=== PATIENT | female | born 1945 | race Caucasian/White ===

== ENCOUNTER 2017-09-07 15:04 | Observation (INO) | payer BC, OTHER ==
[2017-09-07] MEDS ORDERED: SODIUM CHLORIDE 1,000 ML IV SCH (15:45)
--- NOTE | 2017-09-07 15:48 | PDOC ---
History of Present Illness - General Chief Complaint: Headache Stated Complaint: HEADACHE, CONFUSED Time Seen by Provider: 09/07/17 15:12 - History of Present Illness Initial Comments: 09/07/17 15:44 71 F with no PMH presents to ED with 1 day of confusion and headache. Per , pt was in [facility] last night. This morning when she awoke, she began to complain that she did not feel well, stating that she had a headache and at times complained of chest pain. The states that he didn't notice anything was off at first, but as the day progressed, the pt began to grow more confused. He states that she was repeating the same questions over and over and had no recollection of events that had transpired just hours earlier. Pt is unable to contribute much history due to poor memory. She states that she does not know why she is here today. Pt is able to recall her name and knows that she is at [place] but cannot recall the date, month, or year. Pt currently complains of headache with some nausea. Denies chest pain/SOB. Denies weakness/numbness in any extremity. denies ever seeing any facial droop or slurred speech. Past History - Past Medical History Allergies/Adverse Reactions: Allergies Allergy/AdvReac Type Severity Reaction Status Date / Time azithromycin [From Zithromax] Allergy Unverified 09/07/17 15:37 Home Medications: Ambulatory Orders NK [No Known Home Medication] 09/07/17 Review of Systems - Review of Systems Comments:: 09/07/17 15:48 "GENERAL/CONSTITUTIONAL: No fever or chills. No weakness. HEAD, EYES, EARS, NOSE AND THROAT: No change in vision. No ear pain or discharge. No sore throat. CARDIOVASCULAR: No chest pain or shortness of breath. RESPIRATORY: No cough, wheezing, or hemoptysis. GASTROINTESTINAL: No nausea, vomiting, diarrhea or constipation. GENITOURINARY: No dysuria, frequency, or change in urination. MUSCULOSKELETAL: No joint or muscle swelling or pain. No neck or back pain. SKIN: No rash NEUROLOGIC: + headache, +confusion, no vertigo, loss of consciousness, or change in strength/sensation. ENDOCRINE: No increased thirst. No abnormal weight change. HEMATOLOGIC/LYMPHATIC: No anemia, easy bleeding, or history of blood clots. ALLERGIC/IMMUNOLOGIC: No hives or skin allergy. " *Physical Exam - Physical Exam Comments: 09/07/17 15:48 "GENERAL: Awake, alert, in no acute distress HEAD: No signs of trauma EYES: PERRLA, EOMI, sclera anicteric, conjunctiva clear ENT: Auricles normal inspection, hearing grossly normal, nares patent, oropharynx clear without exudates. Moist mucosa NECK: Nontender, no stepoffs, Normal ROM, supple, no lymphadenopathy, JVD, or masses LUNGS: Breath sounds equal, clear to auscultation bilaterally. No wheezes, and no crackles HEART: Regular rate and rhythm, normal S1 and S2, no murmurs, rubs or gallops ABDOMEN: Soft, nontender, normoactive bowel sounds. No guarding, no rebound. No masses EXTREMITIES: Normal range of motion, no edema. No clubbing or cyanosis. No cords, erythema, or tenderness NEUROLOGICAL: Alert and oriented to person and place only, Cranial nerves II through XII intact. 5/5 strength and sensation in all extremities, Normal speech , normal gait, normal cerebellar function SKIN: Warm, Dry, normal turgor, no rashes or lesions noted. " ED Treatment Course - LABORATORY CBC & Chemistry Diagram: 09/07/17 15:48 09/07/17 15:48 - RADIOLOGY Radiology Studies Ordered: Category Date Time Status HEAD CT (STROKE) [CT] Stat CT Scan 09/07/17 15:34 Ordered Medical Decision Making - Medical Decision Making 09/07/17 15:49 71 F with 1 day of headache and confusion. Pt alert and oriented to person and place only. Neuro exam otherwise normal. Possible CVA/ICH, but symptoms also seem consistent with TGA. Pt outside window for tPA. - CT head - Labs - Neuro consult 09/07/17 17:23 CTH negative Labs wnl. Spoke with Dr. Perez, neuro chief radiation therapist, who recommends MRI at this time to r/o ischemia. Aspirin and statin given. Hospitalist microblogged for admission. 09/07/17 17:35 Pt admitted to hospitalist *DC/Admit/Observation/Transfer Diagnosis at time of Disposition: TGA (transient global amnesia) - Discharge Dispostion Admit: Yes - Referrals - Patient Instructions - Post Discharge Activity - Attestations Physician Attestion: 09/07/17 17:35 I, Dr. Manuel Jack MD, attest that this document has been prepared under my direction and personally reviewed by me in its entirety. I further attest, that it accurately reflects all work, treatment, procedures and medical decision -making performed by me. NIH Stroke Scale - Last Known Well Date/Time & Onset Date Last Known Well: 09/06/17 Time Last Known Well: 20:00 - Initial Evaluation Level of consciousness: Alert Ask patient the month and their age: Both incorrect Ask patient to open & close eyes; make fist and let go: Obeys both correctly Best gaze (horizontal eye movement): Normal Visual field testing: No visual field loss Facial paresis (Show teeth/raise eyebrows/close eyes tight): Normal symmetrical movement Motor Function: Left Arm: Normal Motor Function: Right Arm: Normal (extends arm 90 (or 45) degrees for 10 seconds without drift Motor Function: Left Leg: Normal (extends leg 30 degrees for 5 seconds without drift) Motor Function: Right Leg: Normal (extends leg 30 degrees for 5 seconds without drift) Limb Ataxia: No ataxia Sensory(Use pinprick test arms,legs,trunk,face/side to side): Normal Best language (Describe picture, name items, read sentences): No Aphasia Dysarthria (read several words): Normal articulation Extinction and Inattention: No abnormality - Total Score NIH Stroke Scale Score: 2
[2017-09-07 16:02] LABS: BASO % 0.9 % (0-2.0); EOS % 0.5 % (0-4.5); HEMATOCRIT 41.8 % (32.4-45.2); HEMOGLOBIN 14.2 GM/dl (10.7-15.3); LYMPH % 11.5 % (8-40); MCH 28.9 pg (25.7-33.7); MCHC 33.9 g/dl (32.0-36.0); MEAN CELL VOLUME 85.2 fl (80-96); MEAN PLT VOLUME 8.3 fl (7.5-11.1); MONO % 4.5 % (3.8-10.2); NEUT % 82.6 % (42.8-82.8); PLATELET COUNT 192 K/MM3 (134-434); RDW 12.8 % (11.6-15.6); WHITE BLOOD COUNT 6.9 K/mm3 (4.0-10.8)
[2017-09-07 16:10] VITALS: BMI 19.0
[2017-09-07 16:25] LABS: INR 1.02 (0.82-1.09); PROTHROMBIN TIME (PATIENT) 11.4 SEC (10.2-13.0)
[2017-09-07 16:47] LABS: ALBUMIN 4.3 g/dl (3.5-5.0); ALK PHOS 66 U/L (32-92); ANION GAP 6 (8-16); BILIRUBIN,TOTAL 1.1 mg/dl (0.2-1.0); BLOOD UREA NITROGEN 10 mg/dl (7-18); CALCIUM 9.1 mg/dl (8.4-10.2); CHLORIDE 99 mmol/L (98-107); CHOLESTEROL 232 mg/dl; CO2 28 mmol/L (22-28); CREATININE 0.8 mg/dl (0.6-1.3); GLUCOSE,RANDOM 108 mg/dl (74-106); HDL CHOLESTEROL 82 mg/dl (29-89); POTASSIUM 3.8 mmol/L (3.5-5.1); SGOT/AST 28 U/L (10-42); SGPT/ALT 31 U/L (10-40); SODIUM 133 mmol/L (136-145); TOT PROT 6.8 g/dl (6.4-8.3); TRIGLYCERIDES 75 mg/dl (35-160)
[2017-09-07] MEDS ORDERED: ASPIRIN 325 MG TABLET PO ONE (17:14)
[2017-09-07] MEDS ORDERED: ATORVASTATIN CA 80 MG TABLET (FP) PO ONE (17:16)
[2017-09-07] MEDS ORDERED: ASPIRIN 325 MG TABLET ONE (17:33)
[2017-09-07] MEDS ORDERED: ATORVASTATIN CA 80 MG TABLET (FP) ONE (17:33)
[2017-09-07 18:26] LABS: URINE APPEARANCE Clear; URINE BILIRUBIN Negative (NEGATIVE); URINE BLOOD Negative (NEGATIVE); URINE GLUCOSE (UA) Negative (NEGATIVE); URINE KETONE 1+ (NEGATIVE); URINE NITRITE Negative (NEGATIVE); URINE PROTEIN Negative (NEGATIVE); URINE UROBILINOGEN 0.2 (0.2-1.0)
[2017-09-07 18:27] LABS: URINE COLOR YELLOW; URINE LEUK ESTERASE 2+ (NEGATIVE)
[2017-09-07 18:41] LABS: AMORP URATES FEW /hpf (NONE SEEN); EPI CELLS FEW /HPF; URINE BACTERIA FEW /hpf (NEGATIVE)
--- NOTE | 2017-09-07 20:25 | HP ---
CHIEF COMPLAINT: Headache, Confusion PCP: HISTORY OF PRESENT ILLNESS: This is a 71 y/o woman from home who presents to the ED with headache, and confusion x 1 day. Patient reports and increase with confusion and short term memory decline which she attributes to "age related". Patient reports not taking her antihypertension meds in > 3 years. She reports making lifestyle choices- diet and exercise. Patient does report having occasional headaches. ER course was notable for: (1) Head CT- ICH (2) (3) Recent Travel: None PAST MEDICAL HISTORY: Hypertension PAST SURGICAL HISTORY: Appendectomy Kidney donor Tonsillectomy Social History: Smoking: Former 40 yrs ago Alcohol: Socially Drugs: Denies Lives with spouse, employed Family History: Father: [place], HTN, Sister: HTN, DM Type II Allergies No Known Allergies Allergy (Verified 09/07/17 19:41) HOME MEDICATIONS: Home Medications Medication Instructions Recorded NK [No Known Home Medication] 09/07/17 REVIEW OF SYSTEMS CONSTITUTIONAL: Absent: fever, chills, diaphoresis, generalized weakness, malaise, loss of appetite, weight change HEENT: Absent: rhinorrhea, nasal congestion, throat pain, throat swelling, difficulty swallowing, mouth swelling, ear pain, eye pain, visual changes CARDIOVASCULAR: Absent: chest pain, syncope, palpitations, irregular heart rate, lightheadedness , peripheral edema RESPIRATORY: Absent: cough, shortness of breath, dyspnea with exertion, orthopnea, wheezing, stridor, hemoptysis GASTROINTESTINAL: Absent: abdominal pain, abdominal distension, nausea, vomiting, diarrhea, constipation, melena, hematochezia GENITOURINARY: Absent: dysuria, frequency, urgency, hesitancy, hematuria, flank pain, genital pain MUSCULOSKELETAL: Absent: myalgia, arthralgia, joint swelling, back pain, neck pain SKIN: Absent: rash, itching, pallor HEMATOLOGIC/IMMUNOLOGIC: Absent: easy bleeding, easy bruising, lymphadenopathy, frequent infections ENDOCRINE: Absent: unexplained weight gain, unexplained weight loss, heat intolerance, cold intolerance NEUROLOGIC: headache, mental status changes Absent: focal weakness or paresthesias, dizziness, unsteady gait, seizure, bladder or bowel incontinence PSYCHIATRIC: Absent: anxiety, depression, suicidal or homicidal ideation, hallucinations. PHYSICAL EXAMINATION Vital Signs - 24 hr 09/07/17 09/07/17 09/07/17 15:11 15:34 16:34 Temperature 97.5 F L 97.5 F L Pulse Rate 66 Pulse Rate [ 68 67 Left] Respiratory 20 20 20 Rate Blood Pressure 180/85 Blood Pressure 192/79 186/92 [Right Arm] O2 Sat by Pulse 99 99 98 Oximetry (%) 09/07/17 09/07/17 09/07/17 17:00 19:55 20:08 Temperature 98.5 F 98.5 F Pulse Rate 72 72 Pulse Rate [ 67 Left] Respiratory 18 18 20 Rate Blood Pressure 180/85 180/85 Blood Pressure 168/96 [Right Arm] O2 Sat by Pulse 98 100 98 Oximetry (%) GENERAL: Awake, alert, and fully oriented name, age, year, president/place, in no acute distress. HEAD: Normal with no signs of trauma. EYES: Pupils equal, round and reactive to light, extraocular movements intact, sclera anicteric, conjunctiva clear. No lid lag. EARS, NOSE, THROAT: Ears normal, nares patent, oropharynx clear without exudates. Moist mucous membranes. NECK: Normal range of motion, supple without lymphadenopathy, JVD, or masses. LUNGS: Breath sounds equal, clear to auscultation bilaterally. No wheezes, and no crackles. No accessory muscle use. HEART: Regular rate and rhythm, normal S1 and S2 without murmur, rub or gallop. ABDOMEN: Soft, nontender, not distended, normoactive bowel sounds, no guarding, no rebound, no masses. No hepatomegaly or splenomegaly. MUSCULOSKELETAL: Normal range of motion at all joints. No bony deformities or tenderness. No CVA tenderness. UPPER EXTREMITIES: 2+ pulses, warm, well-perfused. No cyanosis. No clubbing. No peripheral edema. LOWER EXTREMITIES: 2+ pulses, warm, well-perfused. No calf tenderness. No peripheral edema. NEUROLOGICAL: Cranial nerves II-XII intact. Normal speech. Gait not observed. + heel-Ayon noted, no drift PSYCHIATRIC: Cooperative. Good eye contact. Appropriate mood and affect. SKIN: Warm, dry, normal turgor, no rashes or lesions noted, normal capillary refill. Laboratory Results - last 24 hr 09/07/17 09/07/17 09/07/17 15:48 15:48 15:48 WBC 6.9 RBC 4.90 Hgb 14.2 Hct 41.8 MCV 85.2 MCH 28.9 MCHC 33.9 RDW 12.8 Plt Count 192 MPV 8.3 Neutrophils % 82.6 Lymphocytes % 11.5 Monocytes % 4.5 Eosinophils % 0.5 Basophils % 0.9 PT with INR 11.4 INR 1.02 PTT (Actin FS) Sodium 133 L Potassium 3.8 Chloride 99 Carbon Dioxide 28 Anion Gap 6 L BUN 10 Creatinine 0.8 Creat Clearance w eGFR > 60 Random Glucose 108 H Calcium 9.1 Total Bilirubin 1.1 H AST 28 ALT 31 Alkaline Phosphatase 66 Creatine Kinase 43 Troponin I Total Protein 6.8 Albumin 4.3 Triglycerides 75 Cholesterol 232 HDL Cholesterol 82 Urine Color Urine Appearance Urine pH Ur Specific [place] Urine Protein Urine Glucose (UA) Urine Ketones Urine Blood Urine Nitrite Urine Bilirubin Urine Urobilinogen Ur Leukocyte Esterase Urine RBC Urine WBC Ur Epithelial Cells Amorphous Urates Urine Bacteria Blood Type Antibody Screen 09/07/17 09/07/17 09/07/17 15:48 15:48 15:48 WBC RBC Hgb Hct MCV MCH MCHC RDW Plt Count MPV Neutrophils % Lymphocytes % Monocytes % Eosinophils % Basophils % PT with INR INR PTT (Actin FS) 28.0 Sodium Potassium Chloride Carbon Dioxide Anion Gap BUN Creatinine Creat Clearance w eGFR Random Glucose Calcium Total Bilirubin AST ALT Alkaline Phosphatase Creatine Kinase Troponin I < 0.03 Total Protein Albumin Triglycerides Cholesterol HDL Cholesterol Urine Color Urine Appearance Urine pH Ur Specific [place] Urine Protein Urine Glucose (UA) Urine Ketones Urine Blood Urine Nitrite Urine Bilirubin Urine Urobilinogen Ur Leukocyte Esterase Urine RBC Urine WBC Ur Epithelial Cells Amorphous Urates Urine Bacteria Blood Type Cancelled Antibody Screen Cancelled 09/07/17 18:10 WBC RBC Hgb Hct MCV MCH MCHC RDW Plt Count MPV Neutrophils % Lymphocytes % Monocytes % Eosinophils % Basophils % PT with INR INR PTT (Actin FS) Sodium Potassium Chloride Carbon Dioxide Anion Gap BUN Creatinine Creat Clearance w eGFR Random Glucose Calcium Total Bilirubin AST ALT Alkaline Phosphatase Creatine Kinase Troponin I Total Protein Albumin Triglycerides Cholesterol HDL Cholesterol Urine Color Yellow Urine Appearance Clear Urine pH 8.0 Ur Specific [place] 1.015 Urine Protein Negative Urine Glucose (UA) Negative Urine Ketones 1+ H Urine Blood Negative Urine Nitrite Negative Urine Bilirubin Negative Urine Urobilinogen 0.2 Ur Leukocyte Esterase 2+ H Urine RBC 2-4 Urine WBC 10-20 Ur Epithelial Cells Few Amorphous Urates Few Urine Bacteria Few Blood Type Antibody Screen ASSESSMENT/PLAN: 71 y/o woman with a PMHx of Untreated HTN. Placed in Tele Observation for Transient Global Amnesia secondary to Confusion Plan: FEN - Po fluids as tolerated - Replete lytes prn - Clear Diet Code Status: Full Code Dispo: Observation Problem List - Problem (1) TGA (transient global amnesia) Assessment/Plan: - Concerning for CVA/TIA -Continue to monitor CBC, BMP - CT Head- no ICH - MRI- pending - Appreciate Neurology Consult - Seizure Precautions - HOB elevated - Bedrest, may use BRP with assistance only - Fall precautions - TSH level in am - Monitor vitals Code(s): G45.4 - TRANSIENT GLOBAL AMNESIA (2) Uncontrolled hypertension Assessment/Plan: - Suboptimal - Monitor BP - Will start with CCB , ARB or thiazide as needed - FU with PCP upon d/c for bP management - Counseled patient on risks and dangers of Uncontrolled HTN, patient verbalized understanding - Monitor renal function Code(s): I10 - ESSENTIAL (PRIMARY) HYPERTENSION (3) Headache Assessment/Plan: - Likely secondary to Uncontrolled BP vs CVA vs TIA - BP uncontrolled- patient has been on a "drug Holiday" x3 years - CT Head- neg ICH - Tylenol prn - Neuro checks - Appreciate Neuro Consult - Monitor vitals Code(s): R51 - HEADACHE (4) Asymptomatic bacteriuria Assessment/Plan: - +2 Leukocytes esterase - Patient denies dysuria, fever, or chills - No ABX warranted at this time, will continue monitor and treat with interventions accordingly Code(s): R82.71 - BACTERIURIA (5) DVT prophylaxis Assessment/Plan: - OOB - SCDs Code(s): FTW2259 - Visit type - Emergency Visit Emergency Visit: Yes ED Registration Date: 09/07/17 Care time: The patient presented to the Emergency Department on the above date and was hospitalized for further evaluation of their emergent condition. - New Patient This patient is new to me today: Yes Date on this admission: 09/07/17 - Critical Care Critical Care patient: No
[2017-09-08 08:29] LABS: ANION GAP 7 (8-16); BLOOD UREA NITROGEN 13 mg/dl (7-18); CHLORIDE 106 mmol/L (98-107); CHOLESTEROL 217 mg/dl; CO2 26 mmol/L (22-28); CREATININE 0.8 mg/dl (0.6-1.3); GLUCOSE,RANDOM 58 mg/dl (74-106); HDL CHOLESTEROL 73 mg/dl (29-89); LDL CHOLESTEROL (ONLY DFH) 124 mg/dl; MAGNESIUM 2.1 mg/dL (1.8-2.4); PHOSPHOROUS 3.5 mg/dl (2.5-4.6); POTASSIUM 3.5 mmol/L (3.5-5.1); SODIUM 139 mmol/L (136-145); TRIGLYCERIDES 102 mg/dl (35-160)
[2017-09-08 08:32] LABS: BASO % 0.6 % (0-2.0); EOS % 1.4 % (0-4.5); HEMOGLOBIN 13.9 GM/dl (10.7-15.3); LYMPH % 25.4 % (8-40); MCH 29.2 pg (25.7-33.7); MCHC 33.9 g/dl (32.0-36.0); MEAN CELL VOLUME 86.1 fl (80-96); MEAN PLT VOLUME 8.5 fl (7.5-11.1); NEUT % 64.6 % (42.8-82.8); PLATELET COUNT 188 K/MM3 (134-434); RBC 4.76 M/mm3 (3.60-5.2); RDW 12.8 % (11.6-15.6); WHITE BLOOD COUNT 6.4 K/mm3 (4.0-10.8)
[2017-09-08] MEDS ORDERED: DEXTROSE 5%-0.45% SALINE 1,000 ML IV SCH (10:30)
--- NOTE | 2017-09-08 12:47 | PN ---
Physical Exam: SUBJECTIVE: Patient seen and examined and looking well. at bedside Pt is AAOx4 OBJECTIVE: Vital Signs Period Temp Pulse Resp BP Sys/[place] Pulse Ox Last 24 Hr 97.5 F-98.5 F 66-74 18-20 148-192/79-96 96-100 GENERAL: The patient is awake, alert, and fully oriented, in no acute distress. HEAD: Normal with no signs of trauma. EYES: PERRL, extraocular movements intact, sclera anicteric, conjunctiva clear. No ptosis. ENT: Ears normal, nares patent, oropharynx clear without exudates, moist mucous membranes. NECK: Trachea midline, full range of motion, supple. LUNGS: Breath sounds equal, clear to auscultation bilaterally, no wheezes, no crackles, no accessory muscle use. HEART: Regular rate and rhythm, S1, S2 without murmur, rub or gallop. ABDOMEN: Soft, nontender, nondistended, normoactive bowel sounds, no guarding, no rebound, no hepatosplenomegaly, no masses. EXTREMITIES: 2+ pulses, warm, well-perfused, no edema. NEUROLOGICAL: Cranial nerves II through XII grossly intact. Normal speech, gait not observed.No neuro deficits PSYCH: Normal mood, normal affect. SKIN: Warm, dry, normal turgor, no rashes or lesions noted Laboratory Results - last 24 hr 09/07/17 09/07/17 09/07/17 15:48 15:48 15:48 WBC 6.9 RBC 4.90 Hgb 14.2 Hct 41.8 MCV 85.2 MCH 28.9 MCHC 33.9 RDW 12.8 Plt Count 192 MPV 8.3 Neutrophils % 82.6 Lymphocytes % 11.5 Monocytes % 4.5 Eosinophils % 0.5 Basophils % 0.9 PT with INR 11.4 INR 1.02 PTT (Actin FS) Sodium 133 L Potassium 3.8 Chloride 99 Carbon Dioxide 28 Anion Gap 6 L BUN 10 Creatinine 0.8 Creat Clearance w eGFR > 60 Random Glucose 108 H Hemoglobin A1c % Calcium 9.1 Phosphorus Magnesium Total Bilirubin 1.1 H AST 28 ALT 31 Alkaline Phosphatase 66 Creatine Kinase 43 Troponin I Total Protein 6.8 Albumin 4.3 Triglycerides 75 Cholesterol 232 Total LDL Cholesterol HDL Cholesterol 82 Vitamin B12 TSH Urine Color Urine Appearance Urine pH Ur Specific [place] Urine Protein Urine Glucose (UA) Urine Ketones Urine Blood Urine Nitrite Urine Bilirubin Urine Urobilinogen Ur Leukocyte Esterase Urine RBC Urine WBC Ur Epithelial Cells Amorphous Urates Urine Bacteria Blood Type Antibody Screen 09/07/17 09/07/17 09/07/17 15:48 15:48 15:48 WBC RBC Hgb Hct MCV MCH MCHC RDW Plt Count MPV Neutrophils % Lymphocytes % Monocytes % Eosinophils % Basophils % PT with INR INR PTT (Actin FS) 28.0 Sodium Potassium Chloride Carbon Dioxide Anion Gap BUN Creatinine Creat Clearance w eGFR Random Glucose Hemoglobin A1c % Calcium Phosphorus Magnesium Total Bilirubin AST ALT Alkaline Phosphatase Creatine Kinase Troponin I < 0.03 Total Protein Albumin Triglycerides Cholesterol Total LDL Cholesterol HDL Cholesterol Vitamin B12 TSH Urine Color Urine Appearance Urine pH Ur Specific [place] Urine Protein Urine Glucose (UA) Urine Ketones Urine Blood Urine Nitrite Urine Bilirubin Urine Urobilinogen Ur Leukocyte Esterase Urine RBC Urine WBC Ur Epithelial Cells Amorphous Urates Urine Bacteria Blood Type Cancelled Antibody Screen Cancelled 09/07/17 09/07/17 09/08/17 18:10 22:15 07:30 WBC 6.4 RBC 4.76 Hgb 13.9 Hct 41.0 MCV 86.1 MCH 29.2 MCHC 33.9 RDW 12.8 Plt Count 188 MPV 8.5 Neutrophils % 64.6 Lymphocytes % 25.4 Monocytes % 8.0 Eosinophils % 1.4 Basophils % 0.6 PT with INR INR PTT (Actin FS) Sodium Potassium Chloride Carbon Dioxide Anion Gap BUN Creatinine Creat Clearance w eGFR Random Glucose Hemoglobin A1c % Calcium Phosphorus Magnesium Total Bilirubin AST ALT Alkaline Phosphatase Creatine Kinase Troponin I < 0.03 Total Protein Albumin Triglycerides Cholesterol Total LDL Cholesterol HDL Cholesterol Vitamin B12 TSH Urine Color Yellow Urine Appearance Clear Urine pH 8.0 Ur Specific [place] 1.015 Urine Protein Negative Urine Glucose (UA) Negative Urine Ketones 1+ H Urine Blood Negative Urine Nitrite Negative Urine Bilirubin Negative Urine Urobilinogen 0.2 Ur Leukocyte Esterase 2+ H Urine RBC 2-4 Urine WBC 10-20 Ur Epithelial Cells Few Amorphous Urates Few Urine Bacteria Few Blood Type Antibody Screen 09/08/17 09/08/17 09/08/17 07:30 07:30 07:30 WBC RBC Hgb Hct MCV MCH MCHC RDW Plt Count MPV Neutrophils % Lymphocytes % Monocytes % Eosinophils % Basophils % PT with INR INR PTT (Actin FS) Sodium 139 Potassium 3.5 Chloride 106 Carbon Dioxide 26 Anion Gap 7 L BUN 13 D Creatinine 0.8 Creat Clearance w eGFR Random Glucose 58 L D Hemoglobin A1c % 5.3 Calcium 9.0 Phosphorus 3.5 Magnesium 2.1 Total Bilirubin AST ALT Alkaline Phosphatase Creatine Kinase Troponin I < 0.03 Total Protein Albumin Triglycerides 102 D Cholesterol 217 Total LDL Cholesterol 124 HDL Cholesterol 73 Vitamin B12 392 TSH 1.01 Urine Color Urine Appearance Urine pH Ur Specific [place] Urine Protein Urine Glucose (UA) Urine Ketones Urine Blood Urine Nitrite Urine Bilirubin Urine Urobilinogen Ur Leukocyte Esterase Urine RBC Urine WBC Ur Epithelial Cells Amorphous [place]ates Urine Bacteria Blood Type Antibody Screen Active Medications Generic Name Dose Route Start Last Admin Trade Name Freq PRN Reason Stop Dose Admin Dextrose/Sodium Chloride 1,000 mls @ 75 mls/hr 09/08/17 10:30 D5-1/2ns - IV ASDIR ORION ASSESSMENT/PLAN: 71 y/o woman with a PMHx of Untreated HTN presented for + confusion for 5-6 hours as witnessed by yesterday. No trauma noted. Now completely resolved. Confusion/TIA -head CT officially neg -follow up with neurology -pending MRI today -received ASA/Statin in ER FEN - Po fluids as tolerated - Replete lytes prn - low salt diet Cardiac -noted on tele, occassional PVC today. -repeated EKG normal sinus -replete lytes Dispo: pending MRi continues on observation Visit type - Emergency Visit Emergency Visit: Yes ED Registration Date: 09/07/17 Care time: The patient presented to the Emergency Department on the above date and was hospitalized for further evaluation of their emergent condition. - New Patient This patient is new to me today: Yes Date on this admission: 09/08/17 - Critical Care Critical Care patient: No - Discharge Referral Referred to [facility] Med [facility] No
[2017-09-08] MEDS ORDERED: amLODIPine BESYLATE 2.5 MG TABLET (FP) PO SCH (13:00)
[2017-09-08] MEDS ORDERED: POTASSIUM CHLORIDE TABS 20 MEQ TABLET.ER (FP) PO ONE (13:15)
--- NOTE | 2017-09-08 14:31 | CONSULT ---
Consult - text type - Consultation Consultation Note: Neurology History of Present Illness 71 F with no PMH presents to ED with 1 day of confusion and headache. Per , pt was in usual state of health until night before admission. Next morning when she awoke, she began to complain that she did not feel well, stating that she had a headache and at times complained of chest pain. The stated that he didn't notice anything was off at first, but as the day progressed, the pt began to grow more confused. He states that she was repeating the same questions over and over and had no recollection of events that had transpired just hours earlier. She came to [facility] ER, and I spoke to ER physician. CT head did not show any acute changes. Asked for MRI brain which was completed. Awaiting official report, prelime view of mine appears to now show acute changes. No infarcts, no masses. While admitted her BP was slightly elevated and LDL noted to be 124. Past History - Past Medical History Allergies/Adverse Reactions: Allergies Allergy/AdvReac Type Severity Reaction Status Date / Time azithromycin [From Zithromax] Allergy Unverified 09/07/17 15:37 Home Medications: Ambulatory Orders NK [No Known Home Medication] 09/07/17 Review of Systems "GENERAL/CONSTITUTIONAL: No fever or chills. No weakness. HEAD, EYES, EARS, NOSE AND THROAT: No change in vision. No ear pain or discharge. No sore throat. CARDIOVASCULAR: No chest pain or shortness of breath. RESPIRATORY: No cough, wheezing, or hemoptysis. GASTROINTESTINAL: No nausea, vomiting, diarrhea or constipation. GENITOURINARY: No dysuria, frequency, or change in urination. MUSCULOSKELETAL: No joint or muscle swelling or pain. No neck or back pain. SKIN: No rash NEUROLOGIC: + headache, +confusion, no vertigo, loss of consciousness, or change in strength/sensation. ENDOCRINE: No increased thirst. No abnormal weight change. HEMATOLOGIC/LYMPHATIC: No anemia, easy bleeding, or history of blood clots. ALLERGIC/IMMUNOLOGIC: No hives or skin allergy. " *Physical Exam Vital Signs Temperature 97.9 F 09/08/17 03:00 Pulse Rate 74 09/08/17 03:00 Respiratory Rate 19 09/08/17 04:27 Blood Pressure 152/80 09/08/17 03:00 O2 Sat by Pulse Oximetry (%) 96 09/08/17 06:11 "GENERAL: Awake, alert, in no acute distress HEAD: No signs of trauma EYES: PERRLA, EOMI, sclera anicteric, conjunctiva clear ENT: Auricles normal inspection, hearing grossly normal, nares patent, oropharynx clear without exudates. Moist mucosa NECK: Nontender, no stepoffs, Normal ROM, supple, no lymphadenopathy, JVD, or masses LUNGS: Breath sounds equal, clear to auscultation bilaterally. No wheezes, and no crackles HEART: Regular rate and rhythm, normal S1 and S2, no murmurs, rubs or gallops ABDOMEN: Soft, nontender, normoactive bowel sounds. No guarding, no rebound. No masses EXTREMITIES: Normal range of motion, no edema. No clubbing or cyanosis. No cords, erythema, or tenderness NEUROLOGICAL: Alert and oriented to person and place only, Cranial nerves II through XII intact. 5/5 strength and sensation in all extremities, Normal speech. SKIN: Warm, Dry, normal turgor, no rashes or lesions noted. CBCD WBC 6.4 K/mm3 (4.0-10.8) 09/08/17 07:30 RBC 4.76 M/mm3 (3.60-5.2) 09/08/17 07:30 Hgb 13.9 GM/dl (10.7-15.3) 09/08/17 07:30 Hct 41.0 % (32.4-45.2) 09/08/17 07:30 MCV 86.1 fl (80-96) 09/08/17 07:30 MCHC 33.9 g/dl (32.0-36.0) 09/08/17 07:30 RDW 12.8 % (11.6-15.6) 09/08/17 07:30 Plt Count 188 K/MM3 (134-434) 09/08/17 07:30 MPV 8.5 fl (7.5-11.1) 09/08/17 07:30 CMP Sodium 139 mmol/L (136-145) 09/08/17 07:30 Potassium 3.5 mmol/L (3.5-5.1) 09/08/17 07:30 Chloride 106 mmol/L (98-107) 09/08/17 07:30 Carbon Dioxide 26 mmol/L (22-28) 09/08/17 07:30 Anion Gap 7 (8-16) L 09/08/17 07:30 BUN 13 mg/dl (7-18) D 09/08/17 07:30 Creatinine 0.8 mg/dl (0.6-1.3) 09/08/17 07:30 Creat Clearance w eGFR > 60 (>60) 09/07/17 15:48 Calcium 9.0 mg/dl (8.4-10.2) 09/08/17 07:30 Total Bilirubin 1.1 mg/dl (0.2-1.0) H 09/07/17 15:48 AST 28 U/L (10-42) 09/07/17 15:48 ALT 31 U/L (10-40) 09/07/17 15:48 Alkaline Phosphatase 66 U/L (32-92) 09/07/17 15:48 Total Protein 6.8 g/dl (6.4-8.3) 09/07/17 15:48 Albumin 4.3 g/dl (3.5-5.0) 09/07/17 15:48 - RADIOLOGY CT head reviewed Medical Decision Making 71 F with no PMH presents to ED with 1 day of confusion and headache. Per , pt was in usual state of health until night before admission. Next morning when she awoke, she began to complain that she did not feel well, stating that she had a headache and at times complained of chest pain. The stated that he didn't notice anything was off at first, but as the day progressed, the pt began to grow more confused. He stated that she was repeating the same questions over and over and had no recollection of events that had transpired just hours earlier. She came to [facility] ER, and I spoke to ER physician. CT head did not show any acute changes. Awaiting official report for MRI brain, prelim view of mine appears to now show acute changes. No infarcts, no masses. While admitted her BP was slightly elevated and LDL noted to be 124 Started on norvasc, agree with this BP control recommended, < 130/90 as outpatient Continue ASA 81mg as outpatient Continue statin as outpatient, goal LDL < 100 If MRI negative on final read, ok for discharge Spoke in detail with patient and family at bedside, all in agreement with above Discussed with nurse as well
[2017-09-08 14:42] VITALS: BP 152/76; PULSE 83; TEMP 98.2
[2017-09-08] MEDS ORDERED: ATORVASTATIN CA 20 MG TABLET (FP) PO SCH (22:00)
--- NOTE | 2017-09-09 19:58 | EKG ---
Test Reason : Blood Pressure : / mmHG Vent. Rate : 066 BPM Atrial Rate : 066 BPM P-R Int : 186 ms QRS Dur : 086 ms QT Int : 438 ms P-R-T Axes : 004 -18 028 degrees QTc Int : 459 ms NORMAL SINUS RHYTHM NO PREVIOUS ECGS AVAILABLE Confirmed by ROSEMARIE NA MD ([id number]) on 09/09/2017 7:57:55 PM Referred By: Hany Cramer Confirmed By:ROSEMARIE AN MD
--- NOTE | 2017-09-09 20:01 | EKG ---
Test Reason : Blood Pressure : / mmHG Vent. Rate : 063 BPM Atrial Rate : 063 BPM P-R Int : 180 ms QRS Dur : 090 ms QT Int : 430 ms P-R-T Axes : 007 -11 033 degrees QTc Int : 440 ms NORMAL SINUS RHYTHM RSR' OR QR PATTERN IN V1 SUGGESTS RIGHT VENTRICULAR CONDUCTION DELAY POOR R WAVE PROGRESSION ABNORMAL ECG WHEN COMPARED WITH ECG OF 07-SEP-2017 15:15, Loss or R wave amplitude in V4 (due to lead placement?) Confirmed by ROSEMARIE AN MD ([id number]) on 09/09/2017 8:00:48 PM Referred By: Hany Cramer Confirmed By:ROSEMARIE AN MD
== END 2017-09-08 15:30 | disposition home or self-care (01) ==
LOC: FER 15:04 → FM/S 18:18 → UNDOADMIN 18:18 → INTOOBSV 20:25 → FM/S 20:25
PROVIDERS: ADMIT Hospitalist; ATTEND Nurse Practitioner Family
PROC: 3E0337Z Introduction of Electrolytic and Water Balance Substance into Peripheral Vein, Percutaneous Approach (ICD-10-PCS; principal; 2017-09-07)
DX: G45.4 Transient global amnesia (principal); I11.0 Hypertensive heart disease with heart failure; R51 Headache; R82.91 Other chromoabnormalities of urine
CPT/HCPCS: 36415; 70450-TC; 70551-TC; 71045-TC-FY; 80048; 80053; 80061; 81003; 81015; 82465; 82550; 82607; 83036; 83718; 83735; 84100; 84443; 84478; 84484; 85025; 85610; 85730; 93005; 99283-25; G0378

== ENCOUNTER 2019-01-28 22:25 | Emergency (ER) | payer BC ==
--- NOTE | 2019-01-28 22:33 | PDOC ---
History of Present Illness - General Chief Complaint: Injury Stated Complaint: s/p fall- pain l ankle Time Seen by Provider: 01/28/19 22:30 - History of Present Illness Initial Comments: This 73-year-old woman with a history of HTN/global temporal amnesia/cerebral aneurysms(larger one coiled 1 year ago) presents with injury to the left lower leg a few hours prior to presentation. She states that she was in a darkened theater when she descended a step that was not well illuminated and fell. She turned her left ankle when she fell, also impacting her right knee and left hand when she fell. No LOC, head or neck injury occurred. No history of previous left lower leg injury. Past History - Past Medical History Allergies/Adverse Reactions: Allergies Allergy/AdvReac Type Severity Reaction Status Date / Time No Known Allergies Allergy Verified 09/07/17 19:41 Home Medications: Ambulatory Orders Amlodipine Besylate [Norvasc -] 2.5 mg PO DAILY #30 tablet 09/08/17 Aspirin 81 mg PO DAILY 30 Days #30 tab.chew 09/08/17 Oxycodone HCl/Acetaminophen [Percocet 5-325 mg Tablet] 1 tab PO Q6H PRN #12 tablet MDD 4 tabs 01/28/19 Anemia: No Asthma: No Cancer: No Cardiac Disorders: No CVA: No COPD: No CHF: No Dementia: No Diabetes: No GI Disorders: No Disorders: No HTN: Yes Hypercholesterolemia: No Liver Disease: No Seizures: Yes (global temporal epilepsy) Thyroid Disease: No - Surgical History Appendectomy: Yes - Suicide/Smoking/Psychosocial Hx Smoking History: Never smoked Have you smoked in the past 12 months: No If you are a former smoker, when did you quit?: 30 YEARS AGO Hx Alcohol Use: Yes (occasional) Drug/Substance Use Hx: No Substance Use Type: None Hx Substance Use Treatment: No Review of Systems - Review of Systems Able to Perform ROS?: Yes Comments:: 12 point review of systems is negative except for what is noted in the history of present illness *Physical Exam - Physical Exam Comments: GENERAL: Adult female, alert and oriented 3, in no acute distress HEAD: Normal with no signs of trauma. EYES: PERRLA, EOMI, sclera anicteric, conjunctiva clear. ENT: Ears normal, nares patent, oropharynx clear without exudates. Dry mucous membranes. NECK: Normal range of motion, supple without lymphadenopathy, JVD, or masses. LUNGS: Breath sounds equal, clear to auscultation bilaterally. No wheezes, and no crackles. HEART:Regular rate and rhythm, normal S1 and S2 without murmur, rub or gallop. ABDOMEN:.normal bowel sounds No guarding,tenderness or rebound.No masses No distention. EXTREMITIES: Left lower extremity-marked edema/faint ecchymosis/moderate tenderness just proximal to the lateral malleolus. Ecchymosis and edema extends to the proximal portion of the foot, lateral aspect. No ligamentous instability of the ankle Remainder of the extremity exam is normal NEUROLOGICAL: Cranial nerves II through XII grossly intact. Normal speech. No focal neurological deficits. MUSCULOSKELETAL: Back non-tender to palpation, no CVA tenderness SKIN: Warm, Dry, normal turgor, no rashes or lesions noted. Progress Note - Progress Note Progress Note: Left ankle x-ray performed: Preliminary interpretation by me-marked soft tissue edema of the lateral aspect of the ankle. Small avulsion fracture seen at the distal tip of the fibula. No other significant fracture/edema evident Medical Decision Making - Medical Decision Making Posterior leg splint applied using Ortho-Glass material and Agapito wraps. Neurovascular functioning intact after placement of the splint. Crutches provided with adjustment for height. Crutch walking instruction given. Patient has been seen by Dr.Ilan villareral in the past and she will be given referral information for follow-up with this group. Meanwhile, she will elevate her left ankle as much as possible. The patient states that she has a significant amount of pain currently. She was offered Percocet tablet , which was given to her. Patient has been instructed to use Tylenol as needed for mild to moderate pain. Percocet 5/325 one tablet given to the patient here, prior to discharge and small (#12) prescription for Percocet 5/325[ to be taken up to 3 tablets daily] sent to her pharmacy *DC/Admit/Observation/Transfer Diagnosis at time of Disposition: Avulsion fracture of distal end of fibula - Discharge Dispostion Disposition: HOME Condition at time of disposition: Stable - Prescriptions Prescriptions: Oxycodone HCl/Acetaminophen [Percocet 5-325 mg Tablet] 1 tab PO Q6H PRN #12 tablet MDD 4 tabs PRN Reason: Severe Pain - Referrals Referrals: Alec,Manav I, MD [Staff Physician] - - Patient Instructions Printed Discharge Instructions: Ankle Sprain, DI for Avulsion Fracture Additional Instructions: Ice/elevation of the left leg as much as possible over the next 48 hours Keep splint in place Crutches for ambulation until seen by orthopedist Call orthopedics (Dr. Michael [facility]) tomorrow morning to arrange follow-up within the next 48 hours Tylenol as needed for mild pain/Percocet as needed for severe pain Percocet will make you sleepy; do not engage in activities that require your full attention while taking this medication - Post Discharge Activity
[2019-01-28 22:38] VITALS: BP 158/95; PULSE 72; TEMP 97.9; BMI 21.4
== END 2019-01-28 23:57 | disposition home or self-care (01) ==
LOC: FER 22:25
PROC: 2W3RX1Z Immobilization of Left Lower Leg using Splint (ICD-10-PCS; principal; 2019-01-28)
DX: S82.492A Other fracture of shaft of left fibula, initial encounter for closed fracture (principal); X58.XXXA Exposure to other specified factors, initial encounter; Y93.89 Activity, other specified; Y92.26 Movie house or cinema as the place of occurrence of the external cause; Z87.891 Personal history of nicotine dependence; I10 Essential (primary) hypertension; R56.9 Unspecified convulsions
CPT/HCPCS: 73610-TC-LT-FY; 99281-25

== ENCOUNTER 2023-01-26 18:15 | Emergency (ER) | payer BC ==
[2023-01-26 18:42] VITALS: PULSE 64; RESP 16; TEMP 98.2; BMI 21.6
[2023-01-26 19:24] VITALS: BP 190/100
[2023-01-26] MEDS ORDERED: amLODIPine BESYLATE 2.5 MG TABLET (FP) PO ONE (21:30)
[2023-01-26] MEDS ORDERED: amLODIPine BESYLATE 5 MG TABLET (FP) ONE (21:32)
== END 2023-01-26 21:40 | disposition home or self-care (01) ==
LOC: FER 18:15
DX: I10 Essential (primary) hypertension (principal); R51.9 Headache, unspecified
CPT/HCPCS: 70450-TC; 93005; 99284-25